=== PATIENT | female | born 1970 | race Two or more races ===

== ENCOUNTER 2024-01-17 19:24 | Emergency (ER) | payer OTHER ==
[~2024-01-17] VITALS: Ht 147.3 cm; Wt 50.0 kg
[2024-01-17 20:27] LABS: Urine Bacteria None Seen /hpf (None Seen)
[2024-01-17 20:36] LABS: Urine Blood Negative /uL (Negative); Urine Clarity Clear (Clear); Urine Color Light-Yellow (Yellow); Urine Protein, UAD Negative (Negative); Urine Specific Gravity 1.015 (1.001-1.035); Urine Urobilinogen Normal (Negative); Urine WBC 4 /hpf (0 - 5)
[2024-01-17] MEDS: KETOROLAC TROMETH 60MG/2ML VIAL IM ONE (22:15)
[2024-01-17] MEDS ORDERED: HYDR-4902 PO (23:48)
[2024-01-17] MEDS ORDERED: ACET500T58 PO (23:48)
[2024-01-17] MEDS ORDERED: TAMS-35 PO (23:48)
[2024-01-18] MEDS: cloNIDine HCL 0.1 MG TAB PO ONE (00:47)
[2024-01-18 00:49] VITALS: BP 162/76; PULSE 68; RESP 18; TEMP 97.8; O2SAT 96
== END 2024-01-18 00:51 | disposition home or self-care (01) ==
LOC: ER 19:24
DX: N13.2 Hydronephrosis with renal and ureteral calculous obstruction (principal); Z88.8 Allergy status to other drugs, medicaments and biological substances
CPT/HCPCS: 74176; 76775; 81001